=== PATIENT | female | born 1990 | race Caucasian/White ===

== ENCOUNTER 2017-07-03 11:56 | Emergency (ER) | payer OTHER, MEDICAID ==
[~2017-07-03] VITALS: Ht 162.6 cm; Wt 90.7 kg
[~2017-07-03 11:56] MED LIST: ACETAMINOPHEN-1 EAC1 PO; AMOXICILLIN 50500 MG PO; APAP500 PO; BUTALB-APAP-CA1 EACH PO; CIPRO500 MG PO; CLEOCIN HCL300 MG PO; FLAGYL500 MG PO; IBUPROFEN 200200 M1 PO; IBUPROFEN 400400 M2 PO; MEDROLDOSEPACK PO; NEXPLANON68 MG SQ; ONDANSETRON HCL4 M2 PO; PEPCID20 MG PO; PRILOSEC 20 MG20 MG PO; PROMETHAZINE-C120 ML PO; PYRIDIUM200 MG PO; VENTOLIN HFA 1818 GM INH; ZOFRAN ODT4 MG PO; ZOLOFT25 MG PO; ZPAK PO
[2017-07-03] MEDS ORDERED: AMOXICILLIN500 M1 PO (12:34)
[2017-07-03] MEDS ORDERED: DIFLUCAN150 MG PO (12:34)
[2017-07-03 12:40] VITALS: BP 130/86
== END 2017-07-03 12:40 | disposition home or self-care (01) ==
LOC: M.ERS 11:56
DX: J02.0 Streptococcal pharyngitis (principal); F10.99 Alcohol use, unspecified with unspecified alcohol-induced disorder

== ENCOUNTER 2017-07-22 13:06 | Emergency (ER) | payer OTHER, MEDICAID ==
[~2017-07-22] VITALS: Ht 162.6 cm; Wt 90.7 kg
[~2017-07-22 13:06] MED LIST changes: +AMOXICILLIN500 M1 PO; +DIFLUCAN150 MG PO
[2017-07-22] MEDS ORDERED: OSELB75 PO (13:44)
[2017-07-22 14:00] LABS: INFLUENZA A ANTIGEN None Detected (None Detect); INFLUENZA B ANTIGEN None Detected (None Detect)
[2017-07-22] MEDS ORDERED: PROAIR HFA8.5 GM INH (14:07)
[2017-07-22 14:12] VITALS: BP 137/92
== END 2017-07-22 14:14 | disposition home or self-care (01) ==
LOC: M.ERS 13:06
PROVIDERS: Nurse Practitioner Family
DX: J11.1 Influenza due to unidentified influenza virus with other respiratory manifestations (principal)

== ENCOUNTER 2017-07-25 19:16 | Emergency (ER) | payer OTHER, MEDICAID ==
[~2017-07-25] VITALS: Ht 162.6 cm; Wt 90.7 kg
[~2017-07-25 19:16] MED LIST changes: +OSELB75 PO; +PROAIR HFA8.5 GM INH
[2017-07-25] MEDS ORDERED: NEXPLANON (19:32)
[2017-07-25 21:05] LABS: INFLUENZA A ANTIGEN None Detected (None Detect); INFLUENZA B ANTIGEN None Detected (None Detect)
[2017-07-25] MEDS ORDERED: MEDROLDOSEPACK PO (21:23)
[2017-07-25] MEDS ORDERED: PROMETH-CODEIN 65 ML PO (21:23)
[2017-07-25] MEDS ORDERED: IBUPROFEN 800800 M1 PO (21:24)
[2017-07-25 21:48] VITALS: BP 114/74
== END 2017-07-25 21:50 | disposition home or self-care (01) ==
LOC: M.ERS 19:16
PROVIDERS: Nurse Practitioner Family
DX: J11.1 Influenza due to unidentified influenza virus with other respiratory manifestations (principal); J20.9 Acute bronchitis, unspecified

== ENCOUNTER 2017-08-03 09:01 | Emergency (ER) | payer OTHER, MEDICAID ==
[~2017-08-03] VITALS: Ht 162.6 cm; Wt 90.7 kg
[~2017-08-03 09:01] MED LIST changes: +IBUPROFEN 800800 M1 PO; +NEXPLANON; +PROMETH-CODEIN 65 ML PO
[2017-08-03] MEDS ORDERED: AMOXICILLIN 50500 M1 PO (09:37)
[2017-08-03 10:11] VITALS: BP 113/81
== END 2017-08-03 10:12 | disposition home or self-care (01) ==
LOC: M.ERS 09:01
DX: J03.00 Acute streptococcal tonsillitis, unspecified (principal); H92.03 Otalgia, bilateral; F17.210 Nicotine dependence, cigarettes, uncomplicated

== ENCOUNTER 2017-08-19 10:52 | Emergency (ER) | payer OTHER, MEDICAID ==
[~2017-08-19] VITALS: Ht 162.6 cm; Wt 90.7 kg
[~2017-08-19 10:52] MED LIST changes: +AMOXICILLIN 50500 M1 PO
[2017-08-19] MEDS ORDERED: AUGMENTIN 875-1 EACH PO (11:40)
[2017-08-19 11:43] VITALS: BP 126/78
== END 2017-08-19 11:45 | disposition home or self-care (01) ==
LOC: M.ERS 10:52
DX: J02.9 Acute pharyngitis, unspecified (principal); H66.92 Otitis media, unspecified, left ear; F17.210 Nicotine dependence, cigarettes, uncomplicated

== ENCOUNTER 2017-09-16 10:28 | Emergency (ER) | payer OTHER, MEDICAID ==
[~2017-09-16] VITALS: Ht 165.1 cm; Wt 90.7 kg
[~2017-09-16 10:28] MED LIST changes: +AUGMENTIN 875-1 EACH PO
[2017-09-16 10:34] VITALS: BP 147/90
[2017-09-16] MEDS ORDERED: AMOXIL 875 MG875 M1 PO (10:50)
[2017-09-16] MEDS ORDERED: TESSALON PERLE100 MG PO (10:50)
[2017-09-16] MEDS ORDERED: PREDNISONE 20 M20 MG PO (10:50)
== END 2017-09-16 11:02 | disposition home or self-care (01) ==
LOC: M.ERS 10:28
DX: R09.81 Nasal congestion (principal); R05 Cough; J34.89 Other specified disorders of nose and nasal sinuses; F17.210 Nicotine dependence, cigarettes, uncomplicated

== ENCOUNTER 2018-01-03 07:24 | Emergency (ER) | payer OTHER, MEDICAID ==
[~2018-01-03] VITALS: Ht 162.6 cm; Wt 87.1 kg
[~2018-01-03 07:24] MED LIST changes: +AMOXIL 875 MG875 M1 PO; +PREDNISONE 20 M20 MG PO; +TESSALON PERLE100 MG PO
[2018-01-03] MEDS ORDERED: ZOFRAN4 MG PO (08:00)
[2018-01-03] MEDS ORDERED: HYDROCODON-ACE1 EAC7 PO (08:00)
[2018-01-03] MEDS ORDERED: PENICILLIN VK500 MG PO (08:00)
[2018-01-03 08:09] VITALS: BP 136/84
== END 2018-01-03 08:10 | disposition home or self-care (01) ==
LOC: M.ERS 07:24
DX: J02.9 Acute pharyngitis, unspecified (principal); F17.210 Nicotine dependence, cigarettes, uncomplicated

== ENCOUNTER 2018-02-10 05:11 | Emergency (ER) | payer OTHER ==
[~2018-02-10] VITALS: Ht 162.6 cm; Wt 86.2 kg
[~2018-02-10 05:11] MED LIST changes: +HYDROCODON-ACE1 EAC7 PO; +PENICILLIN VK500 MG PO; +ZOFRAN4 MG PO
[2018-02-10] MEDS ORDERED: BIRTH CONTROLL IMPLA (05:25)
[2018-02-10 05:36] LABS: URINE BLOOD NEGATIVE (Negative); URINE CLARITY CLEAR; URINE COLOR DARK YELLOW; URINE GLUCOSE-RANDOM TRACE (Negative); URINE KETONES NEGATIVE (Negative); URINE LEUKOCYTES-REFLEX NEGATIVE (Negative); URINE PROTEIN 1+ (Negative); URINE SPECIFIC GRAVITY >= 1.030 (1.005-1.030)
[2018-02-10 05:40] LABS: ICTOTEST (BILI CONFIRMATORY) Negative (Negative); URINE BILIRUBIN 1+ (Negative); URINE NITRITE-REFLEX POSITIVE (Negative)
[2018-02-10 05:51] LABS: CASTS None Seen /LPF (None Seen); CRYSTALS None Seen /LPF (None Seen); MUCUS 4-6 Moderate strn/LPF (None Seen); SQUAMOUS 4-10 Moderate /LPF (0-3); URINE RBC 0-2 Rare /HPF (0-2); URINE WBC-REFLEX 6-15 Few /HPF (0-5)
[2018-02-10] MEDS ORDERED: PYRIDIUM200 MG PO (05:59)
[2018-02-10] MEDS ORDERED: ULTRAM 50MG TAB50 MG PO (05:59)
[2018-02-10] MEDS ORDERED: CIPROFLOXACIN500 M1 PO (05:59)
[2018-02-10 06:07] VITALS: BP 117/62
== END 2018-02-10 06:09 | disposition home or self-care (01) ==
LOC: M.ERS 05:11
PROVIDERS: Family Medicine
DX: N39.0 Urinary tract infection, site not specified (principal); F17.210 Nicotine dependence, cigarettes, uncomplicated

== ENCOUNTER 2018-02-26 10:04 | Emergency (ER) | payer OTHER ==
[~2018-02-26] VITALS: Ht 162.6 cm; Wt 86.2 kg
[~2018-02-26 10:04] MED LIST changes: +BIRTH CONTROLL IMPLA; +CIPROFLOXACIN500 M1 PO; +ULTRAM 50MG TAB50 MG PO
[2018-02-26] MEDS ORDERED: NOHOMEMEDICATIONS (10:26)
[2018-02-26] MEDS ORDERED: AMOXICILLIN 50500 M1 PO (10:30)
[2018-02-26] MEDS ORDERED: DIFLUCAN150 M1 PO (10:30)
[2018-02-26 10:51] VITALS: BP 94/62
== END 2018-02-26 10:53 | disposition home or self-care (01) ==
LOC: M.ERS 10:04
DX: J02.0 Streptococcal pharyngitis (principal); G43.909 Migraine, unspecified, not intractable, without status migrainosus; F17.210 Nicotine dependence, cigarettes, uncomplicated; Z87.440 Personal history of urinary (tract) infections

== ENCOUNTER 2019-05-23 18:20 | Emergency (ER) | payer OTHER ==
[~2019-05-23] VITALS: Ht 162.6 cm; Wt 56.7 kg
[~2019-05-23 18:20] MED LIST changes: +DIFLUCAN150 M1 PO; +NOHOMEMEDICATIONS
[2019-05-23 18:56] LABS: ABSOLUTE BASOPHILS 0.1 thou/uL (0.0-0.2); ABSOLUTE EOSINOPHILS 0.1 thou/uL (0.0-0.7); ABSOLUTE LYMPHOCYTES 2.6 thou/uL (0.8-5.3); ABSOLUTE MONOCYTES 0.5 thou/uL (0.0-1.2); ABSOLUTE NEUTROPHILS 2.8 thou/uL (1.6-8.1); BASOPHILS 1.2 %; EOSINOPHILS 1.9 %; HEMATOCRIT 40.7 % (37.0-47.0); HEMOGLOBIN 13.7 gm/dL (12.0-15.0); LYMPHOCYTES 42.7 %; MCH 31.6 pg (26.0-34.0); MCHC 33.6 g/dL (28.0-37.0); MCV 94.2 fL (80.0-100.0); MONOCYTES 8.1 %; MPV 8.3 fl. (7.2-11.1); NUCLEATED RBCS 0 /100WBC; PLATELET COUNT* 250 thou/uL (150-400); POLYS 46.1 %; RBC 4.31 mil/uL (4.20-5.00); RDW-CV 13.6 % (10.5-14.5); WBC 6.1 thou/uL (4.0-11.0)
[2019-05-23 19:02] LABS: CALCIUM 8.7 mg/dL (8.5-10.1); CREATININE 0.7 mg/dL (0.6-1.3); POTASSIUM 3.5 mmol/L (3.5-5.1)
[2019-05-23 19:07] LABS: TOTAL BILIRUBIN 0.1 mg/dL (<0.1-1.0); TOTAL PROTEIN 7.5 g/dL (6.4-8.2)
[2019-05-23 19:19] LABS: URINE BILIRUBIN NEGATIVE (Negative); URINE BLOOD NEGATIVE (Negative); URINE CLARITY SL CLOUDY; URINE COLOR YELLOW; URINE GLUCOSE-RANDOM NEGATIVE (Negative); URINE KETONES NEGATIVE (Negative); URINE LEUKOCYTES-REFLEX 1+ (Negative); URINE NITRITE-REFLEX NEGATIVE (Negative); URINE PROTEIN NEGATIVE (Negative); URINE UROBILINOGEN 0.2 E.U./dl (0.2-1.0)
[2019-05-23 19:27] LABS: SQUAMOUS >10 Many /LPF (0-3)
[2019-05-23] MEDS ORDERED: IBUPROFEN 800800 M1 PO ×2 (19:28→19:32)
[2019-05-23] MEDS ORDERED: BENTYL 20 MG TA20 M1 PO ×2 (19:28→19:32)
[2019-05-23 19:29] LABS: BACTERIA-REFLEX 1-9 Few /HPF (None Seen); CASTS None Seen /LPF (None Seen); CRYSTALS None Seen /LPF (None Seen); MUCUS 0-3 Light strn/LPF (None Seen); URINE RBC 0-2 Rare /HPF (0-2); URINE WBC-REFLEX 6-15 Few /HPF (0-5)
[2019-05-23 19:42] VITALS: BP 127/79
== END 2019-05-23 19:45 | disposition home or self-care (01) ==
LOC: M.ERS 18:20
PROVIDERS: Nurse Practitioner Family
DX: N89.8 Other specified noninflammatory disorders of vagina (principal); R10.2 Pelvic and perineal pain; Z32.02 Encounter for pregnancy test, result negative; G43.909 Migraine, unspecified, not intractable, without status migrainosus; F17.210 Nicotine dependence, cigarettes, uncomplicated; Z98.890 Other specified postprocedural states

== ENCOUNTER 2019-07-20 05:01 | Emergency (ER) | payer OTHER ==
[~2019-07-20] VITALS: Ht 162.6 cm; Wt 59.0 kg
[~2019-07-20 05:01] MED LIST changes: +BENTYL 20 MG TA20 M1 PO
[2019-07-20 05:08] VITALS: BP 125/74
[2019-07-20 05:15] LABS: URINE BLOOD TRACE (Negative); URINE CLARITY CLEAR; URINE COLOR YELLOW; URINE GLUCOSE-RANDOM NEGATIVE (Negative); URINE KETONES NEGATIVE (Negative); URINE LEUKOCYTES-REFLEX 1+ (Negative); URINE NITRITE-REFLEX NEGATIVE (Negative); URINE PROTEIN TRACE (Negative); URINE SPECIFIC GRAVITY >= 1.030 (1.005-1.030); URINE UROBILINOGEN 0.2 E.U./dl (0.2-1.0)
[2019-07-20 05:17] LABS: ICTOTEST (BILI CONFIRMATORY) Negative (Negative); URINE BILIRUBIN 1+ (Negative)
[2019-07-20 05:26] LABS: CASTS None Seen /LPF (None Seen); MUCUS 4-6 Moderate strn/LPF (None Seen); SQUAMOUS 0-3 Few /LPF (0-3); URINE RBC 0-2 Rare /HPF (0-2)
[2019-07-20 05:27] LABS: CRYSTALS None Seen /LPF (None Seen)
[2019-07-20] MEDS ORDERED: CIPROFLOXACIN500 M1 PO (05:29)
[2019-07-20] MEDS ORDERED: PYRIDIUM200 MG PO (05:29)
== END 2019-07-20 05:30 | disposition home or self-care (01) ==
LOC: M.ERS 05:01
PROVIDERS: Personal Emergency Response Attendant
DX: N39.0 Urinary tract infection, site not specified (principal); G43.909 Migraine, unspecified, not intractable, without status migrainosus; F17.210 Nicotine dependence, cigarettes, uncomplicated; Z87.440 Personal history of urinary (tract) infections

== ENCOUNTER 2019-08-03 11:29 | Emergency (ER) | payer OTHER ==
[~2019-08-03] VITALS: Ht 162.6 cm; Wt 61.2 kg
[2019-08-03 12:08] LABS: ABSOLUTE EOSINOPHILS 0.1 thou/uL (0.0-0.7); ABSOLUTE LYMPHOCYTES 1.9 thou/uL (0.8-5.3); ABSOLUTE MONOCYTES 0.3 thou/uL (0.0-1.2); ABSOLUTE NEUTROPHILS 2.9 thou/uL (1.6-8.1); BASOPHILS 0.9 %; EOSINOPHILS 1.4 %; HEMATOCRIT 41.2 % (37.0-47.0); HEMOGLOBIN 14.3 gm/dL (12.0-15.0); MCH 32.5 pg (26.0-34.0); MCHC 34.8 g/dL (28.0-37.0); MCV 93.3 fL (80.0-100.0); MONOCYTES 5.8 %; MPV 8.9 fl. (7.2-11.1); NUCLEATED RBCS 0 /100WBC; PLATELET COUNT* 208 thou/uL (150-400); POLYS 54.9 %; RBC 4.42 mil/uL (4.20-5.00); RDW-CV 13.6 % (10.5-14.5); WBC 5.3 thou/uL (4.0-11.0)
[2019-08-03 12:22] LABS: CALCIUM 9.4 mg/dL (8.5-10.1); CREATININE 0.7 mg/dL (0.6-1.3); POTASSIUM 3.8 mmol/L (3.5-5.1)
[2019-08-03 12:27] LABS: ALBUMIN 4.2 g/dL (3.4-5.0); TOTAL BILIRUBIN 0.5 mg/dL (<0.1-1.0); TOTAL PROTEIN 7.8 g/dL (6.4-8.2)
[2019-08-03 13:05] LABS: URINE BILIRUBIN NEGATIVE (Negative); URINE BLOOD NEGATIVE (Negative); URINE CLARITY CLEAR; URINE COLOR YELLOW; URINE GLUCOSE-RANDOM NEGATIVE (Negative); URINE KETONES NEGATIVE (Negative); URINE LEUKOCYTES-REFLEX NEGATIVE (Negative); URINE NITRITE-REFLEX NEGATIVE (Negative); URINE PROTEIN NEGATIVE (Negative); URINE UROBILINOGEN 0.2 E.U./dl (0.2-1.0)
[2019-08-03] MEDS ORDERED: PRILOSEC OTC20 MG PO (13:29)
[2019-08-03] MEDS ORDERED: ONDANSETRON HCL4 M2 PO (13:29)
[2019-08-03 14:20] VITALS: BP 120/61
--- NOTE | 2019-08-03 14:26 | EKG ---
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: : 1990 Requested By: Lizeth Voss Order Number: [id number] MD: Ranulfo Keller Measurements Intervals [place] Rate: 69 P: 38 [place]: 165 QRS: 55 QRSD: 62 T: 42 QT: 390 QTc: 418 Interpretive Statements Sinus arrhythmia Baseline wander in lead(s) V5 Compared to ECG 02/15/2016 17:31:15 Sinus rhythm no longer present Electronically Signed On 08-03-2019 14:25:25 SENIOR HUMAN RESOURCES REPRESENTATIVE by Ranulfo Keller [email or web address] <ELECTRONICALLY SIGNED> By: Ranuflo Keller MD, FACC 08/03/19 1425 1229 1229 Ranulfo Keller MD, [facility] /EPI
[2019-08-04] MEDS ORDERED: CARAFATE 1 GM TA1 GM PO (05:24)
[2019-08-04] MEDS ORDERED: REGLAN 10 MG TA10 MG PO (05:24)
== END 2019-08-03 14:21 | disposition home or self-care (01) ==
LOC: M.ERS 11:29
PROVIDERS: Nurse Practitioner Family
DX: K29.70 Gastritis, unspecified, without bleeding (principal); G43.909 Migraine, unspecified, not intractable, without status migrainosus; F17.210 Nicotine dependence, cigarettes, uncomplicated; Z87.440 Personal history of urinary (tract) infections

== ENCOUNTER 2019-08-04 03:49 | Emergency (ER) | payer OTHER ==
[~2019-08-04] VITALS: Ht 162.6 cm; Wt 59.0 kg
[~2019-08-04 03:49] MED LIST changes: +PRILOSEC OTC20 MG PO
[2019-08-04 04:49] LABS: ABSOLUTE EOSINOPHILS 0.2 thou/uL (0.0-0.7); ABSOLUTE LYMPHOCYTES 1.3 thou/uL (0.8-5.3); ABSOLUTE MONOCYTES 0.5 thou/uL (0.0-1.2); ABSOLUTE NEUTROPHILS 6.3 thou/uL (1.6-8.1); BASOPHILS 0.5 %; EOSINOPHILS 1.9 %; HEMATOCRIT 38.7 % (37.0-47.0); HEMOGLOBIN 13.2 gm/dL (12.0-15.0); LYMPHOCYTES 16.1 %; MCH 32.1 pg (26.0-34.0); MCHC 34.1 g/dL (28.0-37.0); MPV 9.1 fl. (7.2-11.1); NUCLEATED RBCS 0 /100WBC; PLATELET COUNT* 186 thou/uL (150-400); POLYS 75.5 %; RBC 4.12 mil/uL (4.20-5.00); RDW-CV 13.7 % (10.5-14.5); WBC 8.3 thou/uL (4.0-11.0)
[2019-08-04 04:59] LABS: URINE BILIRUBIN NEGATIVE (Negative); URINE BLOOD NEGATIVE (Negative); URINE CLARITY CLEAR; URINE COLOR YELLOW; URINE GLUCOSE-RANDOM NEGATIVE (Negative); URINE KETONES NEGATIVE (Negative); URINE LEUKOCYTES-REFLEX NEGATIVE (Negative); URINE NITRITE-REFLEX NEGATIVE (Negative); URINE PROTEIN NEGATIVE (Negative); URINE SPECIFIC GRAVITY 1.025 (1.005-1.030); URINE UROBILINOGEN 0.2 E.U./dl (0.2-1.0)
[2019-08-04 05:03] LABS: CALCIUM 8.8 mg/dL (8.5-10.1); CREATININE 0.9 mg/dL (0.6-1.3); POTASSIUM 3.8 mmol/L (3.5-5.1)
[2019-08-04 05:07] LABS: ALBUMIN 3.5 g/dL (3.4-5.0); TOTAL BILIRUBIN 0.3 mg/dL (<0.1-1.0); TOTAL PROTEIN 6.6 g/dL (6.4-8.2)
[2019-08-04 05:11] LABS: AMP/METHAMP Negative (Negative); BARBITURATES Negative (Negative); BENZODIAZEPINES Negative (Negative); COCAINE Negative (Negative); METHADONE Negative (Negative); OPIATES Negative (Negative); PCP Negative (Negative); THC Negative (Negative)
[2019-08-04] MEDS ORDERED: CARAFATE 1 GM TA1 GM PO (05:24)
[2019-08-04] MEDS ORDERED: REGLAN 10 MG TA10 MG PO (05:24)
[2019-08-04 05:45] VITALS: BP 116/45
--- NOTE | 2019-08-04 11:41 | EKG ---
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: : 1990 Requested By: Cecilia Chase Order Number: [id number] [place] ALBERTO: Santos Baca Measurements Intervals [place] Rate: 77 P: 77 PA: 170 QRS: 70 QRSD: 75 T: 62 QT: 368 QTc: 417 Interpretive Statements Sinus rhythm Baseline wander in lead(s) V6 Compared to ECG 08/03/2019 12:29:15 Sinus arrhythmia no longer present Electronically Signed On 08-04-2019 11:40:25 DETAIL MANAGER by Santos Baca [email or web address] <ELECTRONICALLY SIGNED> By: Santos Baca MD, [facility] 08/04/19 1140 0353 0353 Santos Baca MD, [facility] /EPI
== END 2019-08-04 05:35 | disposition home or self-care (01) ==
LOC: M.ERS 03:49
PROVIDERS: Emergency Medicine
DX: K29.70 Gastritis, unspecified, without bleeding (principal); G43.909 Migraine, unspecified, not intractable, without status migrainosus; F17.210 Nicotine dependence, cigarettes, uncomplicated; Z87.440 Personal history of urinary (tract) infections; Z79.899 Other long term (current) drug therapy

== ENCOUNTER 2020-02-17 21:52 | Emergency (ER) | payer OTHER ==
[~2020-02-17] VITALS: Ht 162.6 cm; Wt 77.1 kg
[~2020-02-17 21:52] MED LIST changes: +CARAFATE 1 GM TA1 GM PO; +REGLAN 10 MG TA10 MG PO
[2020-02-17] MEDS ORDERED: NORCO 5-325 TA1 EAC2 PO (22:35)
[2020-02-17 22:45] VITALS: BP 99/53
== END 2020-02-17 22:45 | disposition home or self-care (01) ==
LOC: M.ERS 21:52
DX: S90.31XA Contusion of right foot, initial encounter (principal); G43.909 Migraine, unspecified, not intractable, without status migrainosus; F17.210 Nicotine dependence, cigarettes, uncomplicated; Z87.440 Personal history of urinary (tract) infections

== ENCOUNTER 2020-09-22 14:32 | Emergency (ER) | payer OTHER ==
[~2020-09-22] VITALS: Ht 162.6 cm; Wt 81.7 kg
[~2020-09-22 14:32] MED LIST changes: +NORCO 5-325 TA1 EAC2 PO
[2020-09-22] MEDS ORDERED: BACTRIM DS TAB1 EACH PO (15:02)
[2020-09-22] MEDS ORDERED: NORCO5 PO (15:02)
[2020-09-22] MEDS ORDERED: KEFLEX500 M1 PO (15:02)
[2020-09-22] MEDS ORDERED: IBUPROFEN 800800 M1 PO (15:02)
[2020-09-22 15:30] VITALS: BP 124/86
== END 2020-09-22 15:31 | disposition home or self-care (01) ==
LOC: M.ERS 14:32
DX: L03.115 Cellulitis of right lower limb (principal); F17.210 Nicotine dependence, cigarettes, uncomplicated; Z87.440 Personal history of urinary (tract) infections

== ENCOUNTER 2020-09-24 10:06 | Emergency (ER) | payer OTHER ==
[~2020-09-24] VITALS: Ht 162.6 cm; Wt 81.7 kg
[~2020-09-24 10:06] MED LIST changes: +BACTRIM DS TAB1 EACH PO; +KEFLEX500 M1 PO; +NORCO5 PO
[2020-09-24 10:48] LABS: ABSOLUTE BASOPHILS 0.1 thou/uL (0.0-0.2); ABSOLUTE EOSINOPHILS 0.1 thou/uL (0.0-0.7); ABSOLUTE LYMPHOCYTES 1.3 thou/uL (0.8-5.3); ABSOLUTE MONOCYTES 0.6 thou/uL (0.0-1.2); ABSOLUTE NEUTROPHILS 3.7 thou/uL (1.6-8.1); EOSINOPHILS 1.2 %; HEMATOCRIT 39.3 % (37.0-47.0); HEMOGLOBIN 13.3 gm/dL (12.0-15.0); LYMPHOCYTES 22.9 %; MCH 31.6 pg (26.0-34.0); MCHC 33.9 g/dL (28.0-37.0); MONOCYTES 10.8 %; MPV 8.4 fl. (7.2-11.1); NUCLEATED RBCS 0 /100WBC; PLATELET COUNT* 223 thou/uL (150-400); POLYS 64.1 %; RBC 4.22 mil/uL (4.20-5.00); RDW-CV 13.3 % (10.5-14.5); WBC 5.8 thou/uL (4.0-11.0)
[2020-09-24 11:06] LABS: ALBUMIN 3.7 g/dL (3.4-5.0); TOTAL BILIRUBIN 0.3 mg/dL (<0.1-1.0); TOTAL PROTEIN 7.3 g/dL (6.4-8.2)
[2020-09-24] MEDS ORDERED: ZOFRAN ODT4 MG PO (11:39)
[2020-09-24] MEDS ORDERED: HYDROCODON-ACE1 EAC7 PO (11:40)
[2020-09-24 12:34] VITALS: BP 95/45
== END 2020-09-24 12:35 | disposition home or self-care (01) ==
LOC: M.ERS 10:06
PROVIDERS: Nurse Practitioner Family
DX: L02.415 Cutaneous abscess of right lower limb (principal); G43.909 Migraine, unspecified, not intractable, without status migrainosus; F17.210 Nicotine dependence, cigarettes, uncomplicated; Z87.440 Personal history of urinary (tract) infections

== ENCOUNTER 2020-12-16 03:07 | Emergency (ER) | payer OTHER ==
[~2020-12-16] VITALS: Ht 165.1 cm; Wt 79.4 kg
[2020-12-16] MEDS ORDERED: ZOFRAN ODT4 MG PO (08:49)
[2020-12-16 08:58] VITALS: BP 148/92
== END 2020-12-16 08:59 | disposition home or self-care (01) ==
LOC: M.ERS 03:07
DX: S80.211A Abrasion, right knee, initial encounter (principal); M54.2 Cervicalgia; R22.0 Localized swelling, mass and lump, head; R42 Dizziness and giddiness; F17.210 Nicotine dependence, cigarettes, uncomplicated; G43.909 Migraine, unspecified, not intractable, without status migrainosus; Y04.0XXA Assault by unarmed brawl or fight, initial encounter; Y93.89 Activity, other specified; Y92.89 Other specified places as the place of occurrence of the external cause; Y99.9 Unspecified external cause status

== ENCOUNTER 2021-04-19 01:29 | Emergency (ER) | payer OTHER ==
[~2021-04-19] VITALS: Ht 162.6 cm; Wt 77.1 kg
[2021-04-19 01:34] VITALS: BP 125/60
[2021-04-19] MEDS ORDERED: NORCO5 PO (01:57)
== END 2021-04-19 02:15 | disposition home or self-care (01) ==
LOC: M.ERS 01:29
DX: S40.012A Contusion of left shoulder, initial encounter (principal); R07.81 Pleurodynia; R07.89 Other chest pain; R10.2 Pelvic and perineal pain; G43.909 Migraine, unspecified, not intractable, without status migrainosus; F17.210 Nicotine dependence, cigarettes, uncomplicated; Z98.890 Other specified postprocedural states; Z76.0 Encounter for issue of repeat prescription; V89.2XXA Person injured in unspecified motor-vehicle accident, traffic, initial encounter; Y93.I9 Activity, other involving external motion; Y92.488 Other paved roadways as the place of occurrence of the external cause; Y99.8 Other external cause status

== ENCOUNTER 2021-06-21 11:41 | Emergency (ER) | payer OTHER ==
[~2021-06-21] VITALS: Ht 162.6 cm; Wt 79.4 kg
[2021-06-21] MEDS ORDERED: DEXAMETHASONE 44 M1 PO (12:20)
[2021-06-21] MEDS ORDERED: PROMETH-CODEIN 65 ML PO (12:20)
[2021-06-21] MEDS ORDERED: ZPAK PO (12:20)
[2021-06-21] MEDS ORDERED: PULMICORT FLEX90 MCG INH (12:20)
[2021-06-21 12:45] VITALS: BP 118/66
== END 2021-06-21 12:54 | disposition home or self-care (01) ==
LOC: M.ERS 11:41
DX: U07.1 COVID-19 (principal); G43.909 Migraine, unspecified, not intractable, without status migrainosus; F17.210 Nicotine dependence, cigarettes, uncomplicated; Z98.890 Other specified postprocedural states

== ENCOUNTER 2021-06-26 16:06 | Emergency (ER) | payer OTHER ==
[~2021-06-26] VITALS: Ht 162.6 cm; Wt 77.1 kg
[~2021-06-26 16:06] MED LIST changes: +DEXAMETHASONE 44 M1 PO; +PULMICORT FLEX90 MCG INH
[2021-06-26 16:52] LABS: ABSOLUTE LYMPHOCYTES 0.9 thou/uL (0.8-5.3); ABSOLUTE MONOCYTES 0.1 thou/uL (0.0-1.2); ABSOLUTE NEUTROPHILS 3.4 thou/uL (1.6-8.1); BASOPHILS 0.3 %; HEMATOCRIT 41.2 % (37.0-47.0); HEMOGLOBIN 13.8 gm/dL (12.0-15.0); LYMPHOCYTES 20.4 %; MCH 31.6 pg (26.0-34.0); MCHC 33.4 g/dL (28.0-37.0); MCV 94.5 fL (80.0-100.0); MONOCYTES 1.8 %; MPV 9.3 fl. (7.2-11.1); NUCLEATED RBCS 0 /100WBC; PLATELET COUNT* 116 thou/uL (150-400); POLYS 77.5 %; RBC 4.36 mil/uL (4.20-5.00); RDW-CV 13.1 % (10.5-14.5); WBC 4.4 thou/uL (4.0-11.0)
[2021-06-26 16:59] LABS: CALCIUM 7.6 mg/dL (8.5-10.1); CREATININE 0.8 mg/dL (0.6-1.3); POTASSIUM 3.2 mmol/L (3.5-5.1)
[2021-06-26 17:04] LABS: ALBUMIN 3.5 g/dL (3.4-5.0); TOTAL BILIRUBIN 0.3 mg/dL (<0.1-1.0); TOTAL PROTEIN 6.8 g/dL (6.4-8.2)
[2021-06-26 18:52] LABS: URINE BILIRUBIN NEGATIVE (Negative); URINE BLOOD NEGATIVE (Negative); URINE CLARITY CLEAR; URINE COLOR YELLOW; URINE GLUCOSE-RANDOM NEGATIVE (Negative); URINE KETONES TRACE (Negative); URINE LEUKOCYTES-REFLEX NEGATIVE (Negative); URINE NITRITE-REFLEX NEGATIVE (Negative); URINE PROTEIN TRACE (Negative); URINE UROBILINOGEN 0.2 E.U./dl (0.2-1.0)
[2021-06-26] MEDS ORDERED: ZPAK PO (18:55)
[2021-06-26] MEDS ORDERED: APAP W/CODEINE1 TA2 PO (18:55)
[2021-06-26] MEDS ORDERED: ONDANSETRON ODT4 MG PO (18:55)
[2021-06-26 20:24] VITALS: BP 100/55
--- NOTE | 2021-06-27 17:57 | EKG ---
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1990 Requested By: Tracey Townsend Order Number: [id number] [place] MD: Ranulfo Keller Measurements Intervals [place] Rate: 71 P: 47 [place]: 169 QRS: 41 QRSD: 87 T: 36 QT: 389 QTc: 423 Interpretive Statements Sinus rhythm Nonspecific T abnormalities, anterior leads Compared to ECG 08/04/2019 03:53:33 T-wave abnormality now present Electronically Signed On 06-27-2021 17:57:23 AGRICULTURAL CHEMIST by Ranulfo Keller [email or web address] <ELECTRONICALLY SIGNED> By: Ranulfo Keller MD, FAC 06/27/21 1757 1627 1627 Ranulfo Keller MD, [facility] /EPI
== END 2021-06-26 20:24 | disposition home or self-care (01) ==
LOC: M.ERS 16:06
PROVIDERS: Physician Assistant
DX: U07.1 COVID-19 (principal); J18.9 Pneumonia, unspecified organism; R11.2 Nausea with vomiting, unspecified; G43.909 Migraine, unspecified, not intractable, without status migrainosus; F17.210 Nicotine dependence, cigarettes, uncomplicated; Z98.890 Other specified postprocedural states; Z79.899 Other long term (current) drug therapy